=== PATIENT | male | born 1975 | race Caucasian/White ===

== ENCOUNTER 2018-02-04 08:09 | Inpatient (IN) | payer OTHER ==
[2018-02-04] VITALS (12 sets, daily range): BP systolic 89–136; BP diastolic 38–85; Ht 190.5 cm; Wt 83.6 kg
[~2018-02-04] VITALS: Ht 190.5 cm; Wt 83.6 kg
--- NOTE | ~2018-02-04 | CN ---
PATIENT NAME:NICO MORA MEDICAL RECORD: [id number] : 73 LOCATION:[facility] D.2116 ADMIT DATE: 02/04/18 ACCOUNT: [id number] CONSULTING PHYSICIAN: JOE DILLON MD REFERRING PHYSICIAN: LOTUS CALDERON MD DATE OF CONSULTATION: 02/06/2018 CONSULT REQUESTING PHYSICIAN: Jessy Fox MD REASON FOR CONSULTATION: Shortness of breath and fever. HISTORY OF PRESENT ILLNESS: Mr. Mora is a 43-year-old gentleman who has a history of SLE as well as Raynaud's phenomenon. The patient has quit his medication, presented with low-grade fever for the last few days. Also, he has a pleuritic type of chest pain and worsening shortness of breath. He is not coughing any significant amount of phlegm, but whenever he takes a deep breath and cough his chest is severely hurting. Also, he went into atrial fibrillation for which he is seeing Dr. Dennis. REVIEW OF SYSTEMS: Mainly in the history of present illness. PAST MEDICAL HISTORY: 1. Systemic lupus erythematosus. 2. Raynaud's phenomenon. 3. History of atrial fibrillation. 4. History of pleurisy. PAST SURGICAL HISTORY: Nonsignificant. ALLERGIES: There are no known drug allergies. MEDICATIONS: Floored is reviewed. PERSONAL AND SOCIAL HISTORY: He is every day smoker. He is also drinking. FAMILY HISTORY: Significant for hypertension as well as his mother has hemochromatosis. PHYSICAL EXAMINATION: GENERAL: Now, the patient is lying in bed. He is in pain when he takes a deep breath. VITAL SIGNS: The blood pressure is 114/58, pulse is 101, respiration 20, temperature is 100, SpO2 is 100% on 4 liters nasal cannula. HEENT: Conjunctivae are pink. Sclerae are not icteric. NECK: Supple, no JVD. CHEST: Excursion is minimal on both sides. There are bilateral crackles. No wheezing. HEART: Rhythm regular, normal sound, no murmur. ABDOMEN: Soft, bowel sounds present. No hepatosplenomegaly. RECTAL: Deferred. EXTREMITIES: No cyanosis, no clubbing, no pedal edema. SKIN: Warm, normal turgor. CENTRAL NERVOUS SYSTEM: The patient is awake and alert. There is no obvious cranial nerve abnormality. The gait was not tested. CONSULT REPORT [id number] NICO MORA IMAGING: CTA of the chest: There is bilateral pleural effusion. There is pericardial effusion. There is no acute infiltrate. LABORATORY DATA: CBC: The WBC is 5.1, hemoglobin 14.4, hematocrit 41.4, the platelet count 201. Chemistry: Sodium 142, potassium 4.1, BUN is 5, creatinine 1.1. IMPRESSION: 1. Acute hypoxic respiratory failure. 2. Pleurisy. 3. Bibasilar atelectasis, possible pneumonia. 4. Fever, possibly associated with systemic lupus erythematosus. 5. Systemic lupus erythematosus. 6. Atrial fibrillation with rapid ventricular response. 7. Pericardial effusion. 8. Tobacco dependence syndrome. RECOMMENDATION: 1. Start on methylprednisolone IV. Start on Levaquin IV. 2. Heart control per Dr. Dennis. 3. Pain control. Start him on ibuprofen. 3. Blood culture and sensitivity if the patient spikes fever. Follow up labs and chest radiograph. Dr. Fox, thank you for involving me in the care of Mr. Mora. TRANSINT:[id number] Voice Confirmation ID: [id number] DOCUMENT ID: [id number] JOE DILLON MD CC: JESSY FOX [id number] DICTATION DATE: 02/06/18 180 [employer] OPERATOR: 02/06/18 [id number] ADM IN [place] [id number] [place] [address]
[2018-02-04 08:33] LABS: BASOPHILS 0.2 % (0-2); EOSINOPHILS 0.8 % (0-7); HEMATOCRIT 51.7 % (42.0-54.0); HEMOGLOBIN 18.3 g/dL (13.5-17.5); IMMATURE GRANULOCYTES 0.2 % (0-5); LYMPHOCYTES 19.4 % (15-50); MCH 34.6 pg (26.0-34.0); MCHC 35.4 g/dL (31.0-37.0); MCV 97.7 fL (80.0-100.0); MEAN PLATELET VOLUME 10.5 fL (7.4-10.4); MONOCYTES 7.7 % (2-11); NEUTROPHILS 71.7 % (40-80); PLATELET COUNT 199 10x3/uL (130-400); RBC 5.29 10x6/uL (4.20-6.10); RDW 12.4 % (11.5-14.5); WBC 10.5 10x3/uL (4.8-10.8)
[2018-02-04 09:10] LABS: ALBUMIN 4.1 g/dL (3.4-5.0); ALKALINE PHOSPHATASE 98 U/L (46-116); ALT (SGPT) 49 U/L (10-68); BILIRUBIN - TOTAL 0.67 mg/dL (0.2-1.3); CALC OSMOLALITY 279 mosm/kg (275-300); CARBON DIOXIDE 24.5 mmol/L (21.0-32.0); CHLORIDE - SERUM 103 mmol/L (98-107); CREATININE - SERUM 1.1 mg/dL (0.6-1.3); GLUCOSE 85 mg/dL (74-106); POTASSIUM - SERUM 3.7 mmol/L (3.5-5.1); PROTEIN - SERUM 9.2 g/dL (6.4-8.2); SODIUM 142 mmol/L (136-145); UREA NITROGEN 8 mg/dL (7-18); eGFR NON AFRICAN AMERICAN 77 mL/min (90-120)
[2018-02-04 09:24] LABS: CKMB 0.8 U/L (0.0-3.6); CREATINE KINASE 74 UL (21-232); PRO BNP 455 pg/mL (0-125)
[2018-02-04 09:31] LABS: TROPONIN-I < 0.017 ng/mL (0.000-0.060)
[2018-02-04 09:36] LABS: UDS - AMPHET NEGATIVE QUAL (NEGATIVE); UDS - BARB NEGATIVE QUAL (NEGATIVE); UDS - BENZO NEGATIVE QUAL (NEGATIVE); UDS - COCAINE NEGATIVE QUAL (NEGATIVE); UDS - OPIATE NEGATIVE QUAL (NEGATIVE); UDS - PCP NEGATIVE QUAL (NEGATIVE); UDS - THC NEGATIVE QUAL (NEGATIVE)
[2018-02-04 10:00] LABS: T4 THYROXIN - FREE 1.02 ng/dL (0.76-1.46); THYROID STIMULATING HORMONE 1.39 uIU/mL (0.36-3.74)
[2018-02-05 06:07] LABS: BASOPHILS 0.1 % (0-2); EOSINOPHILS 0.1 % (0-7); HEMATOCRIT 43.8 % (42.0-54.0); HEMOGLOBIN 15.1 g/dL (13.5-17.5); IMMATURE GRANULOCYTES 0.2 % (0-5); LYMPHOCYTES 16.2 % (15-50); MCH 33.6 pg (26.0-34.0); MCHC 34.5 g/dL (31.0-37.0); MCV 97.3 fL (80.0-100.0); MEAN PLATELET VOLUME 10.7 fL (7.4-10.4); MONOCYTES 9.6 % (2-11); NEUTROPHILS 73.8 % (40-80); PLATELET COUNT 174 10x3/uL (130-400); RDW 12.3 % (11.5-14.5); WBC 8.1 10x3/uL (4.8-10.8)
[2018-02-05 06:31] LABS: CALC OSMOLALITY 273 mosm/kg (275-300); CARBON DIOXIDE 24.2 mmol/L (21.0-32.0); CHLORIDE - SERUM 102 mmol/L (98-107); GLUCOSE 109 mg/dL (74-106); MAGNESIUM - SERUM 1.9 mg/dL (1.8-2.4); POTASSIUM - SERUM 3.5 mmol/L (3.5-5.1); SODIUM 138 mmol/L (136-145); eGFR NON AFRICAN AMERICAN 86 mL/min (90-120)
[2018-02-05 06:35] LABS: UREA NITROGEN 5 mg/dL (7-18)
[2018-02-05 08:58] VITALS: BP 123/78
[2018-02-05 11:37] VITALS: BP 122/81
[2018-02-05 16:02] VITALS: BP 124/78
[2018-02-05 23:17] VITALS: BP 130/86
[2018-02-06 05:59] LABS: BASOPHILS 0.2 % (0-2); EOSINOPHILS 0.8 % (0-7); HEMATOCRIT 41.4 % (42.0-54.0); HEMOGLOBIN 14.4 g/dL (13.5-17.5); IMMATURE GRANULOCYTES 0.2 % (0-5); LYMPHOCYTES 22.4 % (15-50); MCH 34.1 pg (26.0-34.0); MCHC 34.8 g/dL (31.0-37.0); MCV 98.1 fL (80.0-100.0); MEAN PLATELET VOLUME 10.8 fL (7.4-10.4); MONOCYTES 8.9 % (2-11); NEUTROPHILS 67.5 % (40-80); PLATELET COUNT 201 10x3/uL (130-400); RBC 4.22 10x6/uL (4.20-6.10); RDW 12.3 % (11.5-14.5)
[2018-02-06 06:01] LABS: WBC 5.1 10x3/uL (4.8-10.8)
[2018-02-06 06:10] LABS: CALC OSMOLALITY 279 mosm/kg (275-300); CALCIUM 7.9 mg/dL (8.5-10.1); CARBON DIOXIDE 27.8 mmol/L (21.0-32.0); CHLORIDE - SERUM 106 mmol/L (98-107); CREATININE - SERUM 1.1 mg/dL (0.6-1.3); GLUCOSE 93 mg/dL (74-106); POTASSIUM - SERUM 4.1 mmol/L (3.5-5.1); SODIUM 142 mmol/L (136-145); UREA NITROGEN 5 mg/dL (7-18); eGFR NON AFRICAN AMERICAN 77 mL/min (90-120)
[2018-02-06 06:25] VITALS: BP 121/85
[2018-02-06 08:55] VITALS: BP 114/85
[2018-02-06 12:48] VITALS: BP 106/83
[2018-02-06 16:30] VITALS: BP 114/58
[2018-02-06 21:09] VITALS: BP 102/63
[2018-02-07 06:07] VITALS: BP 104/73
[2018-02-07 06:25] LABS: BASOPHILS 0 % (0-2); EOSINOPHILS 0 % (0-7); HEMATOCRIT 45.3 % (42.0-54.0); HEMOGLOBIN 15.7 g/dL (13.5-17.5); IMMATURE GRANULOCYTES 0.2 % (0-5); LYMPHOCYTES 10.9 % (15-50); MCHC 34.7 g/dL (31.0-37.0); MCV 98.1 fL (80.0-100.0); MEAN PLATELET VOLUME 10.7 fL (7.4-10.4); MONOCYTES 1.2 % (2-11); NEUTROPHILS 87.7 % (40-80); RBC 4.62 10x6/uL (4.20-6.10); WBC 4.1 10x3/uL (4.8-10.8)
[2018-02-07 06:34] LABS: CALC OSMOLALITY 279 mosm/kg (275-300); CALCIUM 8.7 mg/dL (8.5-10.1); CARBON DIOXIDE 28.6 mmol/L (21.0-32.0); CHLORIDE - SERUM 105 mmol/L (98-107); GLUCOSE 144 mg/dL (74-106); PLATELET COUNT 249 10x3/uL (130-400); SODIUM 139 mmol/L (136-145); UREA NITROGEN 9 mg/dL (7-18); eGFR NON AFRICAN AMERICAN 86 mL/min (90-120)
[2018-02-07 07:35] LABS: ERYTHROCYTE SEDIMENTATION RATE 71 mm/hr (0-15)
[2018-02-07 08:26] VITALS: BP 110/81
[2018-02-07 12:03] VITALS: BP 109/68
[2018-02-07 15:59] VITALS: BP 104/65
[2018-02-07] MEDS ORDERED: BETAPACE 80 MG80 MG PO (17:36)
[2018-02-07] MEDS ORDERED: CARDIZEM60 MG PO (17:36)
[2018-02-07] MEDS ORDERED: XARELTO20 MG PO (17:36)
[2018-02-07] MEDS ORDERED: IBUPROFEN600 MG PO (17:37)
[2018-02-07] MEDS ORDERED: PREDNISONE10 MG PO (17:38)
[2018-02-07] MEDS ORDERED: LEVAQUIN750 MG PO (17:47)
== END 2018-02-07 19:07 | disposition home or self-care (01) | DRG 308 ==
LOC: D.ER 08:09 → D.M2 11:25 → D.EDHOLD 11:25 → D.M2 11:55
PROVIDERS: Family Medicine; Internal Medicine Nephrology
DX: I48.0 Paroxysmal atrial fibrillation (principal); J96.01 Acute respiratory failure with hypoxia; J18.9 Pneumonia, unspecified organism; I31.3 Pericardial effusion (noninflammatory); I34.0 Nonrheumatic mitral (valve) insufficiency; I73.00 Raynaud's syndrome without gangrene; M32.9 Systemic lupus erythematosus, unspecified; F17.200 Nicotine dependence, unspecified, uncomplicated